=== PATIENT | female | born 1935 | race Caucasian/White ===

== ENCOUNTER 2018-06-12 07:02 | Day surgery (SDC) | payer MEDICARE ==
[2018-06-12] MEDS ORDERED: LIDOCAINE 2% (SDV) 5 ML INJ (08:08)
[2018-06-12] MEDS ORDERED: PROPOFOL 60 ML (08:08)
== END 2018-06-12 11:27 | disposition home or self-care (01) ==
LOC: GIL 07:02
DX: K57.90 Diverticulosis of intestine, part unspecified, without perforation or abscess without bleeding (principal); K64.4 Residual hemorrhoidal skin tags; K64.8 Other hemorrhoids; I10 Essential (primary) hypertension; E11.9 Type 2 diabetes mellitus without complications; E78.5 Hyperlipidemia, unspecified
CPT/HCPCS: 45378; 82962